=== PATIENT | male | born 2000 | race Caucasian/White ===

== ENCOUNTER 2024-01-04 11:41 | Emergency (ER) | payer SELFPAY ==
[2024-01-04] VITALS (14 sets, daily range): BP systolic 102–129; BP diastolic 55–75; PULSE 76–101; RESP 12–24; TEMP 36.1; O2SAT 80–100; BMI 23.3
[2024-01-04 12:02] LABS: Add Manual Diff / Slide Review NO; Basophils Absolute Auto 100 /uL (0-100); Basophils Percent Auto 0.7 % (0-2); Eosinophils Absolute Auto 200 /uL (0-450); Eosinophils Percent Auto 2.5 % (2-4); Hemoglobin 12.4 g/dL (13.5-17.5); Lymphocytes Absolute Auto 1200 /uL (1100-4500); Lymphocytes Percent Auto 13.1 % (25-40); Mean Corpuscular HGB Conc 33.5 % (30-36); Mean Corpuscular Volume 86.4 fL (80-100); Monocytes Absolute Auto 800 /uL (0-900); Monocytes Percent Auto 8.8 % (3-14); Neutrophils Absolute Auto 7000 /uL (1500-7000); Neutrophils Percent Auto 74.9 % (50-75); Platelet Count 354 X10^3/uL (150-400); Red Blood Cell Count 4.28 X10^6/uL (4.5-5.9); Red Cell Distribution Width 13.4 % (11.6-14.8); White Blood Cell Count 9.3 X10^3/uL (4.5-11.0)
[2024-01-04 12:15] LABS: Alanine Aminotransferase 225 IU/L (<50); Albumin Globulin Ratio 1.6 (1.0-2.8); Alkaline Phosphatase 59 U/L (38-126); Aspartate Aminotransferase 133 IU/L (17-59); Bilirubin Total 0.8 mg/dL (0.2-1.3); Blood Urea Nitrogen 15 mg/dL (9-20); Calcium 9.5 mg/dL (8.4-10.2); Carbon Dioxide 25 mmol/L (22-32); Chloride 100 mmol/L (98-107); Estimated Glomerular Filt Rate > 60 mL/min (>60); Globulin 3.1 g/dL (1.7-4.1); Glucose 91 mg/dL (70-100); HEMOLYSIS 15 (0-50); Potassium 4.5 mmol/L (3.4-5.1); Sodium 136 mmol/L (137-145); Total Protein 8.1 g/dL (6.3-8.2)
[2024-01-04 12:27] LABS: Troponin I < 0.012 ng/mL (0.01-0.034)
[2024-01-04] MEDS: SODIUM CHLORIDE 0.9% 1,000 ML 1000 ML IV (12:34)
[2024-01-04] MEDS: LORazepam 2 MG/ML INJ IV (12:34)
--- NOTE | 2024-01-04 12:47 | ED_ITS ---
HPI - General Adult General Chief complaint: Toxicology Problem Stated complaint: Cocaine OD, Seizure Time Seen by Provider: 01/04/24 11:41 Source: EMS Mode of arrival: EMS History of Present Illness HPI narrative: 23-year-old gentleman who works at the [employer]. States that he uses cocaine occasionally and describes perhaps monthly use (notes that it is quite expensive and he can not afford to do more than that) we will frequently use a g of cocaine started over the course of the evening. This morning he woke up and reportedly snorted 1.5 g had seizure-like activity and was frothing at the mouth. His sister and anna called 911. On their arrival he was not seizing, IV was started he was transported to the emergency department for further evaluation. The patient states that he has some back pain after the seizure activity, he is slightly dizzy complaining of no chest pain. He states he is never had similar problems nor used this much cocaine previously. His typical route of cocaine use a snorting. He uses occasional marijuana and no other recreational drugs. He is very clear that he is using cocaine and not methamphetamine. He is very clear that this was not a suicide attempt. He recently has been working extensive hours with a [employer] shut down. There is a history of depression. Related Data Allergies Allergy/AdvReac Type Severity Reaction Status Date / Time No Known Drug Allergies Allergy Verified 01/04/24 11:47 Review of Systems Review of Systems Narrative: Pertinent positive and negative findings as per HPI Patient History Social History Smoking Status: Current every day smoker Smoking Status: Current every day smoker tobacco type: vaping Substance Use Type: marijuana and crack/cocaine Exam Initial Vital Signs Initial Vital Signs: Vital Signs Temperature 97 F L 01/04/24 11:45 Pulse Rate 79 01/04/24 11:45 Respiratory Rate 12 01/04/24 11:45 Blood Pressure 121/68 01/04/24 11:45 Pulse Oximetry 96 01/04/24 11:45 Oxygen Delivery Method Room Air 01/04/24 11:45 General: No acute distress slightly fatigued, injected sclera somewhat slowed but overall Able to give a complete and coherent history. Well-nourished well- developed HEENT: Moist mucous membranes, normal sclera with reactive pupils, small amount of blood noticed in both nostrils Neck: No JVD, no cervical adenopathy Respiratory: Lungs are clear to auscultation, no wheezing no rales no rhonchi. Full and symmetrical air movement Cardiac: Regular rate and rhythm no murmurs no bruits Abdomen: Soft, nontender, good bowel tones, no flank pain Skin: Warm and dry, no rashes, no signs of self-harm, no track jaimes Neurologic: Grossly neurologically intact with no obvious asymmetries or abnormalities, no evidence of acute hyperreflexia or clonus Extremities: No trauma, well perfused Psych: Cooperative, somewhat slowed overall consistent with a postictal state but otherwise cooperative and appropriate Course Orders Ordered: ED Orders 01/04/24 11:45 EKG-12 Lead Stat 01/04/24 11:54 Complete Blood Count AUTO DIFF Stat Comprehensive Metabolic Panel Stat Magnesium Stat Troponin I Stat 01/04/24 12:58 XR chest 1V Stat Discontinued Medications Sodium Chloride (Normal Saline 0.9%) 1,000 mls @ 1,000 mls/hr IV BOLUS ONE Stop: 01/04/24 12:44 Last Infusion: 01/04/24 13:31 Dose: Infused Documented By: Admin: 01/04/24 12:34 Dose: 1,000 mls/hr Documented By: KUNAL Lorazepam (Lorazepam 2 Mg/Ml Inj) 2 mg IV NOW ONE Stop: 01/04/24 11:46 Last Admin: 01/04/24 12:34 Dose: 2 mg Documented By: KUNAL Vital Signs Vital signs: Vital Signs - 8 hr 01/04/24 11:45 01/04/24 11:48 01/04/24 11:50 Temperature 97 F L Pulse Rate 79 94 H 86 Respiratory Rate 12 Blood Pressure 121/68 Pulse Oximetry 96 80 L 99 Oxygen Delivery Method Room Air 01/04/24 11:50 01/04/24 12:00 01/04/24 12:01 Temperature Pulse Rate 81 80 Respiratory Rate Blood Pressure 122/69 Pulse Oximetry 97 97 Oxygen Delivery Method 01/04/24 12:01 01/04/24 12:30 01/04/24 12:30 Temperature Pulse Rate 88 Respiratory Rate Blood Pressure 112/72 129/75 Pulse Oximetry 100 Oxygen Delivery Method Room Air 01/04/24 13:00 01/04/24 13:00 01/04/24 13:30 Temperature Pulse Rate 98 H 96 H Respiratory Rate 15 16 Blood Pressure 128/75 Pulse Oximetry 100 95 Oxygen Delivery Method 01/04/24 13:30 01/04/24 14:00 01/04/24 14:00 Temperature Pulse Rate 101 H Respiratory Rate 15 Blood Pressure 120/60 110/55 L Pulse Oximetry 95 Oxygen Delivery Method 01/04/24 14:30 01/04/24 14:30 01/04/24 15:00 Temperature Pulse Rate 93 H Respiratory Rate 16 Blood Pressure 116/57 L 112/57 L Pulse Oximetry 95 Oxygen Delivery Method Room Air 01/04/24 15:00 01/04/24 15:30 01/04/24 15:30 Temperature Pulse Rate 85 96 H Respiratory Rate 15 24 Blood Pressure 112/64 Pulse Oximetry 96 95 Oxygen Delivery Method Room Air Medical Decision Making Lab Data 01/04/24 11:54 01/04/24 11:54 Labs: Lab Results 01/04/24 Range/Units 11:54 WBC 9.3 (4.5-11.0) X10^3/uL RBC 4.28 L (4.5-5.9) X10^6/uL Hgb 12.4 L (13.5-17.5) g/dL Hct 37.0 L (41-53) % MCV 86.4 (80-100) fL MCH 29.0 (26-34) PG MCHC 33.5 (30-36) % RDW 13.4 (11.6-14.8) % Plt Count 354 (150-400) X10^3/uL Neut % (Auto) 74.9 (50-75) % Lymph % (Auto) 13.1 L (25-40) % [place] % (Auto) 8.8 (3-14) % Eos % (Auto) 2.5 (2-4) % Baso % (Auto) 0.7 (0-2) % Neut # (Auto) 7000 (1105-7964) /uL Lymph # (Auto) 1200 (5352-2388) /uL [place] # (Auto) 800 (0-900) /uL Eos # (Auto) 200 (0-450) /uL Baso # (Auto) 100 (0-100) /uL Sodium 136 L (137-145) mmol/L Potassium 4.5 (3.4-5.1) mmol/L Chloride 100 (98-107) mmol/L Carbon Dioxide 25 (22-32) mmol/L BUN 15 (9-20) mg/dL Creatinine 0.60 L (0.66-1.25) mg/dL Estimated GFR > 60 (>60) mL/min BUN/Creatinine Ratio 25.0 H (6-22) Glucose 91 (70-100) mg/dL Calcium 9.5 (8.4-10.2) mg/dL Magnesium 2.9 H (1.6-2.3) mg/dL Total Bilirubin 0.8 (0.2-1.3) mg/dL AST 133 H (17-59) IU/L ALT 225 H (<50) IU/L Alkaline Phosphatase 59 (38-126) U/L Troponin I < 0.012 (0.01-0.034) ng/mL Total Protein 8.1 (6.3-8.2) g/dL Albumin 5.0 (3.5-5.0) g/dL Globulin 3.1 (1.7-4.1) g/dL Albumin/Globulin Ratio 1.6 (1.0-2.8) MDM Narrative Medical decision making narrative: CC: Seizure after snorting 1.5 g of cocaine this morning Complicating co-morbidities: None Data collected from: patient, medics, anna, sister. 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 Anna was with the patient this morning and completely confirms this was not a suicide attempt. Differential considered: Unintentional cocaine overdose with seizure, suicide attempt Exam documented above, pertinent findings include: Mild cognitive slowing consistent with a postictal state. Otherwise exam is relatively benign. Lab Test results independently reviewed as above. Pertinent findings: CBC shows mild anemia with hemoglobin at 12.4 and hematocrit at 37 Chemistries are reassuring with normal creatinine. AST and ALT are slightly elevated at 133 and 225 Troponin is undetected Independently reviewed EKG: Sinus rhythm at a rate of 97. No acute ischemic changes. QTC is slightly elongated at 485 Imaging studies independently reviewed: Chest x-ray shows no acute pathology Treatments: L of fluid, 2 mg of IV Ativan Discussion: 23-year-old gentleman with inadvertent overdose of cocaine with tonic-clonic seizure. Patient and fiancee both confirm this was absolutely not a suicide attempt. Both also confirmed that his cocaine use is typically only once or twice a month. Post seizure he is complaining some mild back pain without reproducible bony point tenderness and additional imaging is not required at this time. Labs are reassuring. He was given 2 mg of IV Ativan on arrival in the emergency department and has not had any additional problems since arrival. He has not hyper reflexive. He was initially slightly postictal and then became quite sleepy in his last sleeping comfortably. When he awakens he seems that he is close to his baseline. He has both his sister and his fiancee who were quite concerned about him and will be with him on discharge. At this time there is no indication for advanced imaging or additional workup. He is safe for home discharge Discharge Plan Departure Patient Disposition: Home Clinical Impression: Accidental overdose of cocaine, Seizure Instructions: DI for Cocaine Use Disorder Activity Restrictions/Additional Instructions: Thank you for coming in today I do think that the seizure that you experienced is because you use too much cocaine too quickly. This is a complication with cocaine and can happen even with regular use or higher use. In the emergency department you were given a dose of IV Ativan to make sure you did not have another seizure. You seemed to be recovering nicely. You are going to find that you hurt all over tomorrow. Having a seizure takes a lot of muscular activity Your blood work was reassuring and I see no evidence of any heart problems, kidney or liver problems I would strongly recommend that you avoid cocaine completely in the future as well as other stimulants. Stopping your vaping or at least decreasing to <<amounts of nicotine is also going to be beneficial to your overall health. If you find that you are getting worse or develop any new symptoms, please feel free to return to the emergency department for further evaluation. Referrals: Miscellaneous,Doctor, [Primary Care Provider] - Stand Alone Forms: Patient Portal/API
--- NOTE | 2024-01-04 12:58 | DI.RAD.S_ITS ---
PROCEDURE: XR CHEST 1V INDICATIONS: seizure TECHNIQUE: One view of the chest was acquired. COMPARISON: None. FINDINGS: Surgical changes and devices: None. Lungs and pleura: Lungs are clear. No pleural effusions or pneumothorax. Mediastinum: Mediastinal contours appear normal. Heart size is normal. Bones and chest wall: No suspicious bony lesions. Overlying soft tissues appear unremarkable. IMPRESSION: No acute cardiopulmonary pathology. Dictated by: Dustin Jerry M.D. on 01/04/2024 at 14:07 Approved by: Dustin Jerry M.D. on 01/04/2024 at 14:07
[2024-01-04 13:14] LABS: Magnesium 2.9 mg/dL (1.6-2.3)
== END 2024-01-04 17:01 | disposition home or self-care (01) ==
PROVIDERS: Emergency Provider Emergency Medicine
DX: T40.5X1A Poisoning by cocaine, accidental (unintentional), initial encounter (principal); R56.9 Unspecified convulsions
CPT/HCPCS: 71045; 80053; 83735; 84484; 85025; 93005; 96361; 96374; 99284; J2060

== ENCOUNTER 2024-04-29 11:13 | Emergency (ER) | payer SELFPAY ==
[2024-04-29] VITALS (10 sets, daily range): BP systolic 110–134; BP diastolic 55–82; PULSE 76–105; RESP 9–24; TEMP 36.6; O2SAT 95–100; BMI 22.1
--- NOTE | 2024-04-29 11:35 | EKG_ITS ---
[address] [address] Test Date: 2024-04-29 Pat Name: Maycol Freeman Department: [facility] Room: Gender: Male Donor Relations Manager: MARIALUISA : 2000 Requested By: Order Number: [id number] Reading MD: Maninder Purcell Measurements Intervals [place] Rate: 100 P: 78 MI: 138 QRS: 80 QRSD: 100 T: 41 QT: 362 QTc: 466 Interpretive Statements Normal sinus rhythm Electronically Signed On 04-29-2024 20:14:33 PDT by Maninder Purcell
--- NOTE | 2024-04-29 11:35 | ED.SEIZURE ---
HPI - Seizure General Chief Complaint: Seizure Stated Complaint: Seizures x2 Time Seen by Provider: 04/29/24 11:26 Source: patient and EMS Mode of arrival: EMS Limitations: no limitations History of Present Illness HPI Narrative: Patient here with . Brought in by ambulance from home. Had 2 witnessed generalized tonic-clonic seizure, head facing to the left, 1 minute each. Patient was lying in bed. No injury. No bowel or bladder incontinence. No tongue biting. Patient is awake alert oriented x4 at this time. Patient seen here in the past few months for the same episode. History of cocaine abuse. Patient denies any headache.. No recent illness. No fever chills. Patient is not on any medications for seizures. Patient states had episode when he was 11 years of age but did not tell his parents about it. Did not seek medical attention. Related Data Allergies Allergy/AdvReac Type Severity Reaction Status Date / Time No Known Drug Allergies Allergy Verified 04/29/24 11:14 Review of Systems Review of Systems Narrative: GENERAL: negative chills, fatigue, malaise, fever, sweats. HEENT: negative sinus pain, ear pain, sore throat RESPIRATORY: negative dyspnea, cough CARDIOVASCULAR: negative chest pain, palpitations GASTROINTESTINAL: negative nausea, vomiting, abdominal pain : negative dysuria, frequency, hematuria MUSCULOSKELETAL: Positive muscle or bony pain SKIN: negative rash, skin lesions NEUROLOGIC: negative weakness, numbness positive seizures Patient History Social History Smoking Status: Current every day smoker Smoking Status: Current every day smoker tobacco type: vaping alcohol intake frequency: holidays/special occasions only Substance Use Type: marijuana and crack/cocaine Exam Narrative Exam Narrative: GENERAL: in no distress, not toxic not dyspneic HEAD: Normocephalic. EYES: Pupils equal round ENT: Mucous membranes moist. NECK: Trachea midline. CARDIOVASCULAR: Regular rate and rhythm RESPIRATORY: Clear to auscultation. Breath sounds equal bilaterally. No wheezes, rales, or rhonchi. GASTROINTESTINAL: Abdomen soft, non-tender EXTREMITIES: No gross deformities. Mild tenderness diffusely to the right shoulder. Limited range of motion due to pain. BACK: No flank tenderness. NEURO: AOx4. Clear speech no facial droop light touch intact to bilateral face and hands strong equal park guard. SKIN: Warm and dry PSYCH: Not anxious, is cooperative Initial Vital Signs Initial Vital Signs: Vital Signs Temperature 97.9 F 04/29/24 11:14 Pulse Rate 104 H 04/29/24 11:14 Respiratory Rate 16 04/29/24 11:14 Blood Pressure 134/81 04/29/24 11:14 Pulse Oximetry 98 04/29/24 11:14 Oxygen Delivery Method Room Air 04/29/24 11:14 Course Orders Ordered: Discontinued Medications Ketorolac Tromethamine (Ketorolac 30 Mg/Ml Vial) 15 mg IV NOW ONE Stop: 04/29/24 11:41 Last Admin: 04/29/24 11:54 Dose: 15 mg Documented By: Vital Signs Vital signs: Vital Signs - 8 hr 04/29/24 11:14 04/29/24 11:19 04/29/24 11:19 Temperature 97.9 F Pulse Rate 104 H 105 H Respiratory Rate 16 9 L Blood Pressure 134/81 134/81 Pulse Oximetry 98 98 Oxygen Delivery Method Room Air 04/29/24 11:30 04/29/24 11:30 04/29/24 11:53 Temperature Pulse Rate 103 H 92 H Respiratory Rate 24 19 Blood Pressure 111/78 Pulse Oximetry 98 100 Oxygen Delivery Method 04/29/24 11:53 04/29/24 12:00 04/29/24 12:00 Temperature Pulse Rate 92 H Respiratory Rate 19 Blood Pressure 123/81 127/82 Pulse Oximetry 100 Oxygen Delivery Method 04/29/24 12:35 04/29/24 12:36 04/29/24 12:36 Temperature Pulse Rate 79 79 Respiratory Rate 16 Blood Pressure 123/70 Pulse Oximetry 95 100 Oxygen Delivery Method 04/29/24 13:00 04/29/24 13:00 04/29/24 13:30 Temperature Pulse Rate 85 Respiratory Rate 12 Blood Pressure 121/59 L 110/55 L Pulse Oximetry 98 Oxygen Delivery Method 04/29/24 13:30 Temperature Pulse Rate 79 Respiratory Rate 13 Blood Pressure Pulse Oximetry 96 Oxygen Delivery Method MDM - Seizure Lab Data 04/29/24 11:30 04/29/24 11:30 Labs: Lab Results 04/29/24 04/29/24 Range/Units 11:30 12:39 WBC 8.0 (4.5-11.0) X10^3/uL RBC 4.37 L (4.5-5.9) X10^6/uL Hgb 12.7 L (13.5-17.5) g/dL Hct 38.1 L (41-53) % MCV 87.2 (80-100) fL MCH 29.1 (26-34) PG MCHC 33.3 (30-36) % RDW 13.9 (11.6-14.8) % Plt Count 286 (150-400) X10^3/uL Neut % (Auto) 73.1 (50-75) % Lymph % (Auto) 19.2 L (25-40) % [place] % (Auto) 5.7 (3-14) % Eos % (Auto) 1.3 L (2-4) % Baso % (Auto) 0.7 (0-2) % Neut # (Auto) 5900 (4309-0468) /uL Lymph # (Auto) 1500 (6065-1600) /uL [place] # (Auto) 500 (0-900) /uL Eos # (Auto) 100 (0-450) /uL Baso # (Auto) 100 (0-100) /uL Sodium 134 L (137-145) mmol/L Potassium 4.0 (3.4-5.1) mmol/L Chloride 100 (98-107) mmol/L Carbon Dioxide 23 (22-32) mmol/L BUN 14 (9-20) mg/dL Creatinine 0.73 (0.66-1.25) mg/dL Estimated GFR > 60 (>60) mL/min BUN/Creatinine Ratio 19.2 (6-22) Glucose 139 H (70-100) mg/dL Calcium 9.2 (8.4-10.2) mg/dL Total Bilirubin 0.6 (0.2-1.3) mg/dL AST 57 (17-59) IU/L ALT 58 H (<50) IU/L Alkaline Phosphatase 59 (38-126) U/L Total Protein 7.4 (6.3-8.2) g/dL Albumin 4.6 (3.5-5.0) g/dL Globulin 2.8 (1.7-4.1) g/dL Albumin/Globulin Ratio 1.6 (1.0-2.8) Urine RBC None seen (0-5/HPF) Urine WBC None seen (0-5/HPF) Ur Squamous Epith Cells 0-1 /hpf (0-5/HPF) Urine Bacteria Occasional (0-1) (None) Ur Culture Indicated? Cult not indicated Vol Urine Centrifuged 10ml (spun) U Opiates 300ng/mL cut Negative (Negative) Ur Oxycodone Screen Negative (Negative) Urine Methadone Screen Negative (Negative) Ur Barbiturates Screen Negative (Negative) U Tricyclic Antidepress Negative (Negative) Ur Phencyclidine Scrn Negative (Negative) Ur Amphetamines Screen Negative (Negative) U Methamphetamines Scrn Negative (Negative) Ur MDMA Scrn (Ecstasy) Negative (Negative) U Benzodiazepines Scrn Negative (Negative) Urine Cocaine Screen Positive H (Negative) U Marijuana (THC) Screen Positive H (Negative) Urine pH Normal (Normal) Urine Specific [place] Normal (Normal) Ethyl Alcohol < 10 ( - 10) mg/dL Ur Creatinine Normal (Normal) Urine Dip Bedside Urine Glucose Negative Bedside Urine Bilirubin - Negative Bedside Urine Ketone +/- 5 Urine Specific [place] 1.030 Bedside Urine Occult Blood +/- Bedside Urine pH 6.0 Bedside Urine Protein +/- 15 Bedside Urine Urobilinogen - Negative Bedside Urine Nitrite - Negative Bedside Urine Leukocytes - Negative Esterase Imaging Data CT scan - head: Radiologist's Impression: [place] [address] CT Scan Report Signed Patient: Maycol Freeman MR#: [id number] : 2000 Acct:[id number] Age/Sex: 23 / M Date of Service: 04/29/24 Loc: ED Accession Number: [id number] Procedure: CT head/brain wo con Ordering Provider: Avery Galan MD PROCEDURE: CT HEAD/BRAIN WO CON INDICATIONS: Seizure/altered mental status TECHNIQUE: Noncontrast 4.5 mm thick angled axial sections acquired from the foramen magnum to the vertex, with coronal and sagittal reformats. For radiation dose reduction, the following was used: automated exposure control, adjustment of mA and/or kV according to patient size. COMPARISON: None. FINDINGS: Image quality: Diagnostic. CSF spaces: Basal cisterns are patent. No extra-axial fluid collections. Ventricles are normal in size and shape. Brain: No midline shift. No intracranial masses or hemorrhage. Bernal-white matter interface is normal. Skull and face: Calvarium and visualized facial bones are intact, without suspicious lesions. Sinuses: Visualized sinuses and mastoids are clear. IMPRESSION: No acute intracranial pathology. Dictated by: Dustin Jerry M.D. on 04/29/2024 at 12:10 Approved by: Dustin Jerry M.D. on 04/29/2024 at 12:10 Extremity x-ray #1: Radiologist's Impression: [address] [address] XRay Report Signed Patient: Maycol Freeman MR#: [id number] : 2000 Acct:[id number] Age/Sex: 23 / M Date of Service: 04/29/24 Loc: ED Accession Number: [id number] Procedure: XR shoulder RT min 2V Ordering Provider: Avery Galan MD PROCEDURE: XR SHOULDER RT MIN 2V INDICATIONS: Pain/injury TECHNIQUE: 3 views of the shoulder were acquired. COMPARISON: None. FINDINGS: Bones: No fractures or dislocations. No suspicious bony lesions. Visualized ribs appear intact. Soft tissues: No suspicious soft tissue calcifications. IMPRESSION: No acute right shoulder fracture or dislocation. No gross soft tissue abnormalities. Dictated by: Dustin Jerry M.D. on 04/29/2024 at 12:08 Approved by: Dustin Jerry M.D. on 04/29/2024 at 12:08 [facility] Narrative Medical decision making narrative: Patient here with . Brought in by ambulance from home. Had 2 witnessed generalized tonic-clonic seizure, head facing to the left, 1 minute each. Patient was lying in bed. No injury. No bowel or bladder incontinence. No tongue biting. Patient is awake alert oriented x4 at this time. Patient seen here in the past few months for the same episode. History of cocaine abuse. Patient denies any headache.. No recent illness. No fever chills. Patient is not on any medications for seizures. Patient states had episode when he was 11 years of age but did not tell his parents about it. Did not seek medical attention. After history and exam CT head seizure precautions EKG drug screen CBC CMP alcohol level [facility] Medical records reviewed: Seen here December 2023 Differential considered: Includes but not limited to new onset seizure/substance abuse/meningitis/pseudo-seizure Lab Test results independently reviewed as above. Pertinent findings: Drug screen positive cocaine, WBC 8.0 hemoglobin 12.7 sodium 134 potassium 4.0 glucose 139 AST 57 ALT 58 Independently reviewed EKG normal sinus rhythm rate [address] elevation or depression Imaging studies independently reviewed: CT head no acute finding, x-ray right shoulder no acute finding Consultations: None indicated Treatments: None indicated at this time Re-evaluations: 2:00 p.m.. Updated patient and results. Patient resting comfortably. Cocaine positive in the drug screen. Recommended stop doing cocaine as this may trigger seizures. No new medications are indicated at this time. Primary care referral resources provided. Will need referral for Neurology. Including EEG. Return precautions reviewed. They desire discharge home. Discussion: Appropriate for discharge home exam is reassuring. No new medications indicated this time. Patient not postictal. Exam and laboratory studies imaging studies otherwise reassuring. Return precautions reviewed. They desire discharge home Diagnosis: Cocaine abuse, recurrent seizure Discharge Plan Departure Patient Disposition: Home Clinical Impression: Recurrent seizures, Cocaine abuse Instructions: DI for Seizure Disorder -- Adult, DI for Cocaine Use Disorder Activity Restrictions/Additional Instructions: Please do not do drugs/cocaine. This may trigger seizures. At this time laboratory studies otherwise reassuring as well as CT scan imaging. X-ray of the shoulder is reassuring as well. Please call provided on [facility] health resources to obtain family doctor and referral for Neurology Services. No driving operating machinery until approved by neurology services or your family doctor. This is the state law. Return if worse if any questions or concerns. No new medications or indicated at this time. Referrals: [facility] [Outside] Miscellaneous,MD Audrey [Primary Care Provider] - Stand Alone Forms: Patient Portal/API
--- NOTE | 2024-04-29 11:39 | DI.RAD.S_ITS ---
PROCEDURE: XR SHOULDER RT MIN 2V INDICATIONS: Pain/injury TECHNIQUE: 3 views of the shoulder were acquired. COMPARISON: None. FINDINGS: Bones: No fractures or dislocations. No suspicious bony lesions. Visualized ribs appear intact. Soft tissues: No suspicious soft tissue calcifications. IMPRESSION: No acute right shoulder fracture or dislocation. No gross soft tissue abnormalities. Dictated by: Dustin Jerry M.D. on 04/29/2024 at 12:08 Approved by: Dustin Jerry M.D. on 04/29/2024 at 12:08
[2024-04-29 11:40] LABS: Add Manual Diff / Slide Review NO; Basophils Absolute Auto 100 /uL (0-100); Basophils Percent Auto 0.7 % (0-2); Eosinophils Absolute Auto 100 /uL (0-450); Eosinophils Percent Auto 1.3 % (2-4); Hematocrit 38.1 % (41-53); Hemoglobin 12.7 g/dL (13.5-17.5); Lymphocytes Absolute Auto 1500 /uL (1100-4500); Lymphocytes Percent Auto 19.2 % (25-40); Mean Corpuscular HGB Conc 33.3 % (30-36); Mean Corpuscular Hemoglobin 29.1 PG (26-34); Mean Corpuscular Volume 87.2 fL (80-100); Monocytes Absolute Auto 500 /uL (0-900); Monocytes Percent Auto 5.7 % (3-14); Neutrophils Absolute Auto 5900 /uL (1500-7000); Neutrophils Percent Auto 73.1 % (50-75); Platelet Count 286 X10^3/uL (150-400); Red Blood Cell Count 4.37 X10^6/uL (4.5-5.9); Red Cell Distribution Width 13.9 % (11.6-14.8)
[2024-04-29] MEDS: KETOROLAC 30 MG/ML VIAL 15 MG IV (11:54)
[2024-04-29 11:56] LABS: Alanine Aminotransferase 58 IU/L (<50); Albumin 4.6 g/dL (3.5-5.0); Albumin Globulin Ratio 1.6 (1.0-2.8); Alkaline Phosphatase 59 U/L (38-126); Aspartate Aminotransferase 57 IU/L (17-59); BUN Creatinine Ratio 19.2 (6-22); Bilirubin Total 0.6 mg/dL (0.2-1.3); Blood Urea Nitrogen 14 mg/dL (9-20); Calcium 9.2 mg/dL (8.4-10.2); Carbon Dioxide 23 mmol/L (22-32); Chloride 100 mmol/L (98-107); Estimated Glomerular Filt Rate > 60 mL/min (>60); Ethanol (ETOH) < 10 mg/dL; Globulin 2.8 g/dL (1.7-4.1); Glucose 139 mg/dL (70-100); HEMOLYSIS < 15 (0-50); Sodium 134 mmol/L (137-145); Total Protein 7.4 g/dL (6.3-8.2)
[2024-04-29 13:10] LABS: Ur Creatinine Normal (Normal); Ur Specific Gravity Normal (Normal); Urine Cocaine Positive (Negative); Urine pH Normal (Normal)
[2024-04-29 13:11] LABS: UR Morphine/Opiate cutoff 300 Negative (Negative); Urine Amphetamines Negative (Negative); Urine Barbiturates Negative (Negative); Urine Benzodiazepines Negative (Negative); Urine MDMA Negative (Negative); Urine Methadone Negative (Negative); Urine Methamphetamines Negative (Negative); Urine Oxycodone Negative (Negative); Urine Phencyclidine Negative (Negative); Urine Tetrahydrocannabinol Positive (Negative); Urine Tricyclic Antidepressant Negative (Negative)
[2024-04-29 13:17] LABS: Urine Volume 10mL (spun)
[2024-04-29 13:18] LABS: Bacteria Urine Occasional (0-1); Culture Indicated Urine Cult Not Indicated; RBC Urine None Seen (0-5/HPF); Squamous Epithelial Cell Urine 0-1 /HPF (0-5/HPF); WBC Urine None Seen (0-5/HPF)
== END 2024-04-29 14:21 | disposition home or self-care (01) ==
PROVIDERS: Emergency Provider Emergency Medicine
DX: G40.909 Epilepsy, unspecified, not intractable, without status epilepticus (principal); F14.10 Cocaine abuse, uncomplicated
CPT/HCPCS: 70450; 73030; 80053; 80305; 80320; 81003; 81015; 85025; 93005; 96374; 99284; J1885